=== PATIENT | female | born 1970 | race Caucasian/White ===

== ENCOUNTER 2020-04-26 13:56 | Emergency (ER) | payer BC, OTHER ==
--- NOTE | 2020-04-26 13:58 | ERPHSYRPT ---
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 She has had known abdominal wall hernia but never this kind of pain associated with her hernia. The pain has worsened today. She has not had the appetite she normally does. She has had 2 cups of coffee today and the last Being approximately 2 hours prior to arrival here. She is had no vomiting or diarrhea. She has no chest pain she has had no fever. She has no cough or shortness of breath. Timing/Duration: yesterday Activities at Onset: other (Seen and moving a patient) Quality: aching, cramping Abdominal Pain Onset Location: periumbilical Pain Radiation: no radiation Severity of Pain-Max: moderate Severity of Pain-Current: moderate Associated Symptoms: loss of appetite Previous symptoms: no prior history Allergies/Adverse Reactions: codeine Allergy (Verified 04/26/20 14:11) Penicillins Allergy (Verified 04/26/20 14:11) Home Medications: Duloxetine HCl 60 mg PO DAILY 04/26/20 [History] Gabapentin 300 mg PO TID 04/26/20 [History] Ibuprofen 800 mg PO UD PRN 04/26/20 [History] Loratadine 10 mg PO DAILY 04/26/20 [History] Prednisone 10 mg [Deltasone 10 mg] 10 mg PO UD PRN 04/26/20 [History] Tizanidine HCl 4 mg PO UD PRN 04/26/20 [History] Trazodone HCl 100 mg PO DAILY 04/26/20 [History] Travel Risk - International Travel Have you traveled outside of the country in past 3 weeks: No - Coronavirus Screening Are you exhibiting any of the following symptoms?: No Close contact with a COVID-19 positive Pt in past 14-21 Days: No - Review of Systems Constitutional: No Symptoms Eyes: No Symptoms Ears, Nose, & Throat: No Symptoms Respiratory: No Symptoms Cardiac: No Symptoms Abdominal/Gastrointestinal: Abdominal Pain (In the area of the hernia) Genitourinary Symptoms: No Symptoms Musculoskeletal: No Symptoms Skin: No Symptoms Neurological: No Symptoms Psychological: No Symptoms Endocrine: No Symptoms Hematologic/Lymphatic: No Symptoms Immunological/Allergic: No Symptoms All Other Systems: Reviewed and Negative - Past Medical History Neurological History: No Pertinent History ENT History: No Pertinent History Cardiac History: No Pertinent History Respiratory History: No Pertinent History Endocrine Medical History: No Pertinent History Musculoskeletal History: No Pertinent History GI Medical History: No Pertinent History History: No Pertinent History Psycho-Social History: No Pertinent History Female Reproductive Disorders: No Pertinent History - Past Surgical History Neuro Surgical History: No Pertinent History Cardiac: No Pertinent History Respiratory: No Pertinent History Gastrointestinal: No Pertinent History Genitourinary: No Pertinent History Musculoskeletal: No Pertinent History Female Surgical History: No Pertinent History - Nursing Vital Signs Nursing Vital Signs: Initial Vital Signs Temperature 96.6 F 04/26/20 14:03 Pulse Rate 100 H 04/26/20 14:03 Blood Pressure 108/74 04/26/20 14:03 O2 Sat by Pulse Oximetry 100 04/26/20 14:03 Pain Scale Pain Intensity 2 - Physical Exam General Appearance: mild distress, alert, anxiety Eye Exam: PERRL/EOMI, eyes nml inspection Ears, Nose, Throat Exam: normal ENT inspection, moist mucous membranes Neck Exam: normal inspection, non-tender, supple, full range of motion Respiratory Exam: normal breath sounds, lungs clear, airway intact, No chest tenderness, No respiratory distress Cardiovascular Exam: regular rate/rhythm, normal heart sounds, normal peripheral pulses Gastrointestinal/Abdomen Exam: soft, normal bowel sounds, tenderness (In the area of incarcerated umbilical hernia), guarding, No pulsatile mass, No rebound Pelvic Exam: not done Rectal Exam: not done Back Exam: normal inspection, normal range of motion, No CVA tenderness, No vertebral tenderness Extremity Exam: normal inspection Neurologic Exam: alert, oriented x 3, cooperative, 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 as tested, normal mood/affect, nml cerebellar function, nml station & gait, sensation nml Skin Exam: normal color, warm, dry Lymphatic Exam: No adenopathy SpO2 Interpretation: normal O2 Delivery: Room Air Ordered Tests: Active Orders 24 hr Category Date Time Status IV Insertion STAT Care 04/26/20 14:24 Active ABDOMEN AND PELVIS W/0 CONTRAS [CT] Stat Exams 04/26/20 14:25 Completed AMYLASE Stat Lab 04/26/20 14:47 Completed CBC W DIFF Stat Lab 04/26/20 14:47 Received CMP Stat Lab 04/26/20 14:47 Completed CULTURE,URINE Stat Lab 04/26/20 14:49 Received LIPASE Stat Lab 04/26/20 14:47 Completed Lactic Acid Stat Lab 04/26/20 14:38 Completed UA W/RFX UR CULTURE Stat Lab 04/26/20 14:49 Completed Medication Summary Discontinued Medications Generic Name Dose Route Start Last Admin Trade Name Newtonq PRN Reason Stop Dose Admin Hydromorphone HCl 0.5 mg 04/26/20 14:24 04/26/20 14:35 Hydromorphone 1 Mg/Ml Injection IV 04/26/20 14:25 0.5 mg STAT ONE Administration Hydromorphone HCl Confirm 04/26/20 14:33 Hydromorphone 1 Mg/Ml Injection Administered 04/26/20 14:34 Dose 1 mg .ROUTE .STK-MED ONE Sodium Chloride 1,000 mls @ 999 mls/hr 04/26/20 14:24 04/26/20 14:36 Sodium Chloride 0.9% 1000 Ml IV 04/26/20 15:24 999 mls/hr .Q1H1M STA Administration Sodium Chloride Confirm 04/26/20 14:34 Sodium Chloride 0.9% 1000 Ml Administered 04/26/20 14:35 Dose 1,000 mls @ ud .ROUTE .STK-MED ONE Lorazepam 1 mg 04/26/20 14:25 04/26/20 14:35 Ativan 2 Mg/1 Ml Vial IV 04/26/20 14:26 1 mg STAT ONE Administration Lorazepam Confirm 04/26/20 14:33 Ativan 2 Mg/1 Ml Vial Administered 04/26/20 14:34 Dose 2 mg .ROUTE .STK-MED ONE Ondansetron HCl 4 mg 04/26/20 14:24 04/26/20 14:35 Zofran 4 Mg/2 Ml Vial IV 04/26/20 14:25 4 mg STAT ONE Administration Ondansetron HCl Confirm 04/26/20 14:33 Zofran 4 Mg/2 Ml Vial Administered 04/26/20 14:34 Dose 4 mg .ROUTE .STK-MED ONE Lab/Rad Data: Laboratory Result Diagrams 04/26/20 14:47 Laboratory Results 04/26/20 04/26/20 04/26/20 Range/Units 14:49 14:47 14:38 Sodium 136 L (137-145) mmol/L Potassium 3.9 (3.5-5.1) mmol/L Chloride 108 H (98-107) mmol/L Carbon Dioxide 23 (22-30) mmol/L Anion Gap 8.8 (5-15) MEQ/L BUN 12 (7-17) mg/dL Creatinine 0.85 (0.52-1.04) mg/dL Estimated GFR > 60.0 ML/MIN Glucose 110 H (74-106) mg/dL Lactic Acid 1.4 (0.4-2.0) Calcium 9.4 (8.4-10.2) mg/dL Total Bilirubin 0.50 (0.2-1.3) mg/dL AST 22 (14-36) U/L ALT 11 (0-35) U/L Alkaline Phosphatase 76 (38-126) U/L Serum Total Protein 6.4 (6.3-8.2) g/dL Albumin 3.9 (3.5-5.0) g/dL Amylase 50 (30-110) U/L Lipase 149 (23-300) U/L Urine Color JUANIS (YELLOW) Urine Appearance SLIGHTLY CLOUDY (CLEAR) Urine pH 5.0 (5-6) Ur Specific [place] 1.029 (1.005-1.025) Urine Protein >=500 (Negative) Urine Ketones TRACE (NEGATIVE) Urine Blood SMALL (0-5) Jus/ul Urine Nitrite NEGATIVE (NEGATIVE) Urine Bilirubin MODERATE (NEGATIVE) Urine Urobilinogen 2 (0-1) mg/dL Ur Leukocyte Esterase MODERATE (NEGATIVE) Urine WBC (Auto) 51-100 (0-5) /HPF Urine RBC (Auto) 26-50 (0-2) /HPF U Hyaline Cast (Auto) 3-5 (0-2) /LPF U Epithel Cells (Auto) RARE (FEW) /HPF Urine Bacteria (Auto) MANY (NEGATIVE) /HPF Urine Mucus (Auto) MANY (NEGATIVE) /HPF Urine Culture Reflexed YES (NO) Urine Glucose NEGATIVE (NEGATIVE) mg/dL - Progress Progress: improved, pain not gone completely, re-examined Progress Note: 04/26/20 14:58 Procedure note: This patient had an incarcerated umbilical hernia requiring reduction. After 1 mg of intravenous Ativan and a half a milligram of intravenous Dilaudid as well as Zofran 4 mg intravenously, with even pressure the incarcerated umbilical hernia was reduced. Patient tolerated the procedure well there were no complications. 04/26/20 15:37 CAT scan of the abdomen and pelvis without contrast reveals an umbilical hernia that is small with herniated omental fat that is mildly indurated and inflamed. There is fecal stasis present. Counseled pt/family regarding: lab results, diagnosis, need for follow-up, rad results - Departure Departure Disposition: Home Clinical Impression: Umbilical hernia, incarcerated, Umbilical hernia with obstruction Condition: Stable Critical Care Time: No Referrals: CARMEN LR [Primary Care Provider] - Additional Instructions: Clear liquid diet. No lifting more than 10 pounds until you have your umbilical hernia evaluated by a general surgeon. Keep your appointment with the general surgeon. Wear your abdominal binder at all times. Forms: Work/School Release Form
[2020-04-26] MEDS ORDERED: Hydromorphone 1 mg/ml Injection IV ONE ×2 (14:24→15:55)
[2020-04-26] MEDS ORDERED: Sodium Chloride 0.9% 1000 ML 1,000 ML IV STA (14:24)
[2020-04-26] MEDS ORDERED: Zofran 4 MG/2 ML VIAL IV ONE (14:24)
[2020-04-26] MEDS ORDERED: Ativan 2 MG/1 ML VIAL IV ONE (14:25)
[2020-04-26] MEDS ORDERED: Zofran 4 MG/2 ML VIAL ONE (14:33)
[2020-04-26] MEDS ORDERED: Hydromorphone 1 mg/ml Injection ONE ×2 (14:33→15:59)
[2020-04-26] MEDS ORDERED: Ativan 2 MG/1 ML VIAL ONE (14:33)
[2020-04-26] MEDS ORDERED: Sodium Chloride 0.9% 1000 ML 1,000 ML ONE (14:34)
[2020-04-26 15:07] LABS: ALBUMIN 3.9 g/dL (3.5-5.0); ALKALINE PHOSPHATASE 76 U/L (38-126); AMYLASE 50 U/L (30-110); ANION GAP 8.8 MEQ/L (5-15); BLOOD UREA NITROGEN 12 mg/dL (7-17); CHLORIDE 108 mmol/L (98-107); Calcium 9.4 mg/dL (8.4-10.2); Carbon Dioxide 23 mmol/L (22-30); Creatinine 1 0.85 mg/dL (0.52-1.04); EST GLOMERULAR FILTRATION RATE > 60.0 ML/MIN; Glucose 110 mg/dL (74-106); LIPASE 149 U/L (23-300); Potassium 3.9 mmol/L (3.5-5.1); SGOT/AST 22 U/L (14-36); SGPT/ALT 11 U/L (0-35); SODIUM 136 mmol/L (137-145); Total Protein 6.4 g/dL (6.3-8.2)
[2020-04-26 15:19] LABS: Appearance SLIGHTLY CLOUDY (CLEAR); Bacteria MANY /HPF (NEGATIVE); Bilirubin MODERATE (NEGATIVE); Blood SMALL Ery/ul (0-5); Epithelial Cells RARE /HPF (FEW); Glucose NEGATIVE (NEGATIVE); Ketones TRACE (NEGATIVE); Leukocyte Esterase MODERATE (NEGATIVE); Mucus MANY /HPF (NEGATIVE); Nitrite NEGATIVE (NEGATIVE); Protein,Urine Dip >=500 (Negative); RBC 26-50 /HPF (0-2); Specific Gravity 1.029 (1.005-1.025); Urobilinogen 2 mg/dL (0-1); WBC 51-100 /HPF (0-5)
--- NOTE | 2020-04-26 15:28 | XRAY ---
Indication: Abdomen pain and nausea following lifting injury. Multiple contiguous images obtained through the abdomen and pelvis without contrast as ordered. Comparison: None Lung bases demonstrates bibasilar dependent atelectasis and tiny calcified granulomas. Heart is not enlarged. Noncontrasted stomach and bowel loops appear nonobstructed. Normal appendix. There is mild diffuse scattered colonic fecal debris throughout. No free fluid/air. Remaining liver, gallbladder, pancreas, spleen, adrenal glands, kidneys, ureters, uterus, and bladder appear unremarkable for noncontrast exam. Minimal aortic calcifications without AAA. Osseous structures intact with moderate L4-L5 degenerative disc disease, mild double curvature thoracolumbar scoliosis, and advanced right hip degenerative arthropathy. Small umbilical hernia with herniated omental fat appearing mildly indurated/inflamed. Impression: 1. Small umbilical hernia with herniated omental fat appearing mildly indurated/inflamed. 2. Incidental mild diffuse fecal stasis and old granulomatous disease. 3. Moderate L4-L5 degenerative disc disease, double curvature scoliosis, and advanced right hip degenerative arthropathy.
[2020-04-26 15:35] VITALS: BP 120/80; O2SAT 98
[2020-04-26 15:44] LABS: Absolute Neutrophil Ct (ANC) 4.84 (1.4-6.9); BASOPHIL % 0.1 % (0.0-0.4); Basophil (Absolute #) 0.01 (0-0.4); Eosinophil % 1.7 % (0.00-5.0); Eosinophil (Absolute #) 0.13 (0-0.5); Hematocrit 41.3 % (35-47); Hemoglobin 13.8 gm/dl (12.0-16.0); Lymphocyte (Absolute #) 1.92 (1.0-4.6); Lymphocytes % 25.4 % (24.0-44.0); Mean Cell Volume 99.5 fl (78-100); Mean Corpuscular Hemoglobin 33.3 pg (26-32); Mean Corpuscular Hgb Concent. 33.4 g/dl (32-36); Mean Platelet Volume 10.9 fl (7.5-11.0); Monocyte (Absolute #) 0.67 (0.0-1.3); Monocytes % 8.9 % (0.0-12.0); Neutrophil % 63.9 % (36.0-66.0); Platelet Count 228 K/mm3 (150-450); Red Blood Count 4.15 M/mm3 (4.1-5.4); Red Cell Distribution Width 12.6 % (11.5-14.0); White Blood Count 7.6 K/mm3 (4.0-10.5)
[2020-04-26 16:02] VITALS: PULSE 60
== END 2020-04-26 16:21 | disposition home or self-care (01) ==
LOC: ED 13:56
DX: K42.0 Umbilical hernia with obstruction, without gangrene (principal)
CPT/HCPCS: 36000; 36415; 49999; 74176; 80053; 81001; 82150; 83605; 83690; 85025; 87077; 87086; 87186; 96360; 96374; 96375; 96376; 99284; J1170; J2060; J2405; L0625

== ENCOUNTER 2021-12-16 19:41 | Emergency (ER) | payer OTHER ==
[2021-12-16] MEDS ORDERED: Zofran 4 MG/2 ML VIAL IV ONE (20:25)
[2021-12-16] MEDS ORDERED: Zofran 4 MG/2 ML VIAL ONE (20:49)
[2021-12-16 20:52] LABS: Basophil (Absolute #) 0.03 x10^3/uL (0-0.4); Eosinophil % 2.7 % (0.00-5.0); Eosinophil (Absolute #) 0.25 x10^3/uL (0-0.5); Hemoglobin 7.3 g/dL (12.0-16.0); Lymphocyte (Absolute #) 2.12 x10^3/uL (1.0-4.6); Lymphocytes % 22.6 % (24.0-44.0); Mean Cell Volume 86.6 fL (78-100); Mean Corpuscular Hemoglobin 26.4 pg (26-32); Mean Corpuscular Hgb Concent. 30.4 g/dL (32-36); Mean Platelet Volume 10.6 fL (7.5-11.0); Monocytes % 6.4 % (0.0-12.0); Neutrophil % 66.9 % (36.0-66.0); Platelet Count 430 x10^3/uL (150-450); Red Blood Count 2.77 x10^6/uL (4.1-5.4); Red Cell Distribution Width 15.9 % (11.5-14.0); White Blood Count 9.4 x10^3/uL (4.0-10.5)
[2021-12-16 21:02] LABS: Bacteria RARE /HPF (NEGATIVE); Epithelial Cells RARE /HPF (FEW); Mucus SLIGHT /HPF (NEGATIVE)
[2021-12-16 21:02] LABS: ALBUMIN 3.4 g/dL (3.5-5.0); BILIRUBIN,TOTAL 0.2 mg/dL (0.2-1.3); Calcium 8.8 mg/dL (8.4-10.2); Creatinine 1 1.06 mg/dL (0.52-1.04); EST GLOMERULAR FILTRATION RATE 58.3 ML/MIN; Potassium 3.5 mmol/L (3.5-5.1); Total Protein 6.3 g/dL (6.3-8.2)
[2021-12-16 21:03] LABS: Appearance CLEAR (CLEAR); Bilirubin NEGATIVE (NEGATIVE); Dipstick done @ ? MAIN LAB; Glucose NEGATIVE (NEGATIVE); Ketones NEGATIVE (NEGATIVE); Nitrite NEGATIVE (NEGATIVE); Protein,Urine Dip 100 (Negative); RBC SMALL Ery/ul (0-5); Specific Gravity >=1.030 (1.005-1.025); Urobilinogen 0.2 mg/dL (0-1)
[2021-12-16 21:04] LABS: Urine Cultured Indicated? YES
[2021-12-16 21:28] LABS: INFLUENZA A NEGATIVE (NEGATIVE); INFLUENZA B NEGATIVE (NEGATIVE); RESPIRATORY SYNCTIAL VIRUS NEGATIVE (Negative); SARS-CoV-2 Xpert Express NEGATIVE (NEGATIVE)
--- NOTE | 2021-12-16 22:03 | ERPHSYRPT ---
- History of Present Illness Time Seen by Provider: 12/16/21 19:44 Source: patient Exam Limitations: no limitations Patient Subjective Stated Complaint: pt states " I had my R hip replaced on Saturday 12/09 at [facility], they told me I had an infection in my blood and sent me home with antibiotics. I haven't been feeling well since about friday."" Triage Nursing Assessment: Pt ambulated to room with her crutches, pt alert and oriented x3, pt c/o fever, body aches, and generally "not feeling well since friday." Pt had R hip replacement at [facility] on 12/09/2021. Pt was told she had an infection in her blood and was sent home with Keflex antibiotics 4x day. pt took motrin 1 hr prior to arrival, pt is afebrile at this time, pt c/o R hip pain and headache. Physician History: 51 years old female status post right hip revision at [place] postop day 7 was sent home on Keflex presented in the ER with 5-day history of not feeling well with off-and-on low-grade fever, body aches, headache without cough or shortness of breath. Patient reports earlier she had a fever of 100.0 and took ibuprofen and currently afebrile. Denies any swelling around incision area/leg swelling. Denies abdominal pain nausea vomiting or diarrhea. Denies any known sick contact. 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 Associated Symptoms: headache, muscle aches, sore throat, weakness, No abdominal pain, No chest pain, No cough, No diaphoresis, No nausea/vomiting, No rhinor magno, No shortness of breath Allergies/Adverse Reactions: codeine Allergy (Verified 12/16/21 20:07) Penicillins Allergy (Verified 12/16/21 20:07) Home Medications: Duloxetine HCl 60 mg PO DAILY 04/26/20 [History] Gabapentin 300 mg PO TID 04/26/20 [History] Ibuprofen 800 mg PO UD PRN 04/26/20 [History] Loratadine 10 mg PO DAILY 04/26/20 [History] Tizanidine HCl 4 mg PO UD PRN 04/26/20 [History] Trazodone HCl 100 mg PO DAILY 11/25/20 [History] Cephalexin Mh 500 mg [Keflex 500 mg] 500 mg PO 12/16/21 [History] Hx Tetanus, Diphtheria Vaccination/Date Given: Yes Hx Influenza Vaccination/Date Given: Yes Hx Pneumococcal Vaccination/Date Given: No Immunizations Up to Date: Yes Travel Risk - International Travel Have you traveled outside of the country in past 3 weeks: No - Coronavirus Screening Are you exhibiting any of the following symptoms?: Yes Symptoms: Fever Close contact with a COVID-19 positive Pt in past 14-21 Days: No - Vaccine Status Have you recieved a Covid-19 vaccination: Yes Freezer Unloader: Unknown - Vaccination Dates Dates if Unknown: 2020 - Review of Systems Constitutional: Fever, Chills, Fatigue, Weakness Eyes: No Symptoms Ears, Nose, & Throat: No Symptoms Respiratory: No Symptoms Cardiac: No Symptoms Abdominal/Gastrointestinal: No Symptoms Genitourinary Symptoms: No Symptoms Musculoskeletal: Joint Pain Skin: No Symptoms Neurological: No Symptoms Psychological: No Symptoms Endocrine: No Symptoms Hematologic/Lymphatic: No Symptoms Immunological/Allergic: No Symptoms - Past Medical History Pertinent Past Medical History: Yes Neurological History: No Pertinent History ENT History: No Pertinent History Cardiac History: No Pertinent History Respiratory History: No Pertinent History Endocrine Medical History: No Pertinent History Musculoskeletal History: Arthritis, Osteoporosis, Rheumatoid Arthritis GI Medical History: No Pertinent History History: No Pertinent History Psycho-Social History: No Pertinent History, Depression Female Reproductive Disorders: No Pertinent History - Past Surgical History Past Surgical History: No Neuro Surgical History: No Pertinent History Cardiac: No Pertinent History Respiratory: No Pertinent History Gastrointestinal: No Pertinent History Genitourinary: No Pertinent History Musculoskeletal: Joint Replacement Female Surgical History: No Pertinent History Other Surgical History: R hip replacement x 3 - Social History Smoking Status: Current every day smoker Exposure to second hand smoke: No Drug Use: none Patient Lives Alone: No - Nursing Vital Signs Nursing Vital Signs: Initial Vital Signs Temperature 98.6 F 12/16/21 20:11 Pulse Rate 85 12/16/21 20:11 Respiratory Rate 18 12/16/21 20:11 Blood Pressure 137/67 12/16/21 20:11 O2 Sat by Pulse Oximetry 98 12/16/21 20:11 Pain Scale Pain Intensity 7 - Physical Exam General Appearance: no apparent distress, alert Eye Exam: PERRL/EOMI ENT Exam: normal ENT inspection Neck Exam: normal inspection, supple, full range of motion Respiratory Exam: normal breath sounds, lungs clear Cardiovascular/Chest Exam: normal heart sounds, regular rate/rhythm Gastrointestinal/Abdominal Exam: soft, non tender, no distention, no guarding Extremity Exam: normal inspection, swelling (Right hip bandage well applied with no erythema around. Minimal tenderness/appropriate tenderness around.) Neurologic Exam: alert, oriented x 3, cooperative Skin Exam: normal color SpO2 Interpretation: normal SpO2: 99 O2 Delivery: Room Air Ordered Tests: Active Orders 24 hr Category Date Time Status IV Insertion STAT Care 12/16/21 20:24 Active CHEST 1 VIEW (PORTABLE) Stat Exams 12/16/21 20:25 Taken BLOOD CULTURE Stat Lab 12/16/21 20:45 Received CBC W DIFF Stat Lab 12/16/21 20:45 Completed CMP Stat Lab 12/16/21 20:45 Completed CULTURE,URINE Stat Lab 12/16/21 20:48 Received Lactic Acid Stat Lab 12/16/21 20:42 Completed PROCALCITONIN Stat Lab 12/16/21 20:48 Completed UA W/RFX CULTURE Stat Lab 12/16/21 20:48 Completed Medication Summary Discontinued Medications Generic Name Dose Route Start Last Admin Trade Name Freq PRN Reason Stop Dose Admin Doxycycline Hyclate 100 mg 12/16/21 22:27 Doxycycline Hyclate 100 Mg Tablet PO 12/16/21 22:28 STAT ONE Ondansetron HCl 4 mg 12/16/21 20:25 12/16/21 20:51 Ondansetron Hcl 4 Mg/2 Ml Vial IV 12/16/21 20:26 4 mg STAT ONE Administration Ondansetron HCl Confirm 12/16/21 20:49 Ondansetron Hcl 4 Mg/2 Ml Vial Administered 12/16/21 20:50 Dose 4 mg .ROUTE .STK-MED ONE Lab/Rad Data: Laboratory Result Diagrams 12/16/21 20:45 12/16/21 20:45 Laboratory Results 12/16/21 12/16/21 12/16/21 Range/Units 20:48 20:48 20:48 WBC (4.0-10.5) x10^3/uL RBC (4.1-5.4) x10^6/uL Hgb (12.0-16.0) g/dL Hct (35-47) % MCV (78-100) fL MCH (26-32) pg MCHC (32-36) g/dL RDW (11.5-14.0) % Plt Count (150-450) x10^3/uL MPV (7.5-11.0) fL Gran % (36.0-66.0) % Immature Gran % (Auto) (0.00-0.4) % Nucleat RBC Rel Count (0.00-0.1) % Eos # (Auto) (0-0.5) x10^3/uL Immature Gran # (Auto) (0.00-0.03) x10^3u/L Absolute Lymphs (auto) (1.0-4.6) x10^3/uL Absolute Monos (auto) (0.0-1.3) x10^3/uL Absolute Nucleated RBC (0.00-0.01) x10^3u/L Lymphocytes % (24.0-44.0) % Monocytes % (0.0-12.0) % Eosinophils % (0.00-5.0) % Basophils % (0.0-0.4) % Absolute Granulocytes (1.4-6.9) x10^3/uL Basophils # (0-0.4) x10^3/uL Sodium (137-145) mmol/L Potassium (3.5-5.1) mmol/L Chloride (98-107) mmol/L Carbon Dioxide (22-30) mmol/L Anion Gap (5-15) MEQ/L BUN (7-17) mg/dL Creatinine (0.52-1.04) mg/dL Estimated GFR ML/MIN Glucose (74-106) mg/dL Lactic Acid (0.4-2.0) Calcium (8.4-10.2) mg/dL Total Bilirubin (0.2-1.3) mg/dL AST (14-36) U/L ALT (0-35) U/L Alkaline Phosphatase (38-126) U/L Serum Total Protein (6.3-8.2) g/dL Albumin (3.5-5.0) g/dL Procalcitonin 0.063 (0.030-0.080) ng/mL Urinalys Dipstick Clnc MAIN LAB Urine Color YELLOW (YELLOW) Urine Appearance CLEAR (CLEAR) Urine pH 6.0 (5-6) Ur Specific [place] >=1.030 (1.005-1.025) POC Urine Protein Conf 100 (Negative) Urine Ketones NEGATIVE (NEGATIVE) Urine Nitrite NEGATIVE (NEGATIVE) Urine Bilirubin NEGATIVE (NEGATIVE) Urine Urobilinogen 0.2 (0-1) mg/dL Urine Leukocytes NEGATIVE (NEGATIVE) Urine WBC (Auto) 6-10 (0-5) /HPF Urine RBC (Auto) 3-5 (0-2) /HPF U Epithel Cells (Auto) RARE (FEW) /HPF Urine Bacteria (Auto) RARE (NEGATIVE) /HPF Urine RBC SMALL (0-5) Jus/ul Urine Mucus (Auto) SLIGHT (NEGATIVE) /HPF Ur Culture Indicated? YES Urine Glucose NEGATIVE (NEGATIVE) mg/dL Influenza Type A Ag NEGATIVE (NEGATIVE) Influenza Type B Ag NEGATIVE (NEGATIVE) RSV (PCR) NEGATIVE (Negative) SARS-CoV-2 (PCR) NEGATIVE (NEGATIVE) 12/16/21 12/16/21 12/16/21 Range/Units 20:45 20:45 20:42 WBC 9.4 (4.0-10.5) x10^3/uL RBC 2.77 L (4.1-5.4) x10^6/uL Hgb 7.3 L (12.0-16.0) g/dL Hct 24.0 L (35-47) % MCV 86.6 (78-100) fL MCH 26.4 (26-32) pg MCHC 30.4 L (32-36) g/dL RDW 15.9 H (11.5-14.0) % Plt Count 430 (150-450) x10^3/uL MPV 10.6 (7.5-11.0) fL Gran % 66.9 H (36.0-66.0) % Immature Gran % (Auto) 1.1 H (0.00-0.4) % Nucleat RBC Rel Count 0.0 (0.00-0.1) % Eos # (Auto) 0.25 (0-0.5) x10^3/uL Immature Gran # (Auto) 0.10 H (0.00-0.03) x10^3u/L Absolute Lymphs (auto) 2.12 (1.0-4.6) x10^3/uL Absolute Monos (auto) 0.60 (0.0-1.3) x10^3/uL Absolute Nucleated RBC 0.00 (0.00-0.01) x10^3u/L Lymphocytes % 22.6 L (24.0-44.0) % Monocytes % 6.4 (0.0-12.0) % Eosinophils % 2.7 (0.00-5.0) % Basophils % 0.3 (0.0-0.4) % Absolute Granulocytes 6.30 (1.4-6.9) x10^3/uL Basophils # 0.03 (0-0.4) x10^3/uL Sodium 139 (137-145) mmol/L Potassium 3.5 (3.5-5.1) mmol/L Chloride 109 H (98-107) mmol/L Carbon Dioxide 24 (22-30) mmol/L Anion Gap 10.0 (5-15) MEQ/L BUN 14 (7-17) mg/dL Creatinine 1.06 H (0.52-1.04) mg/dL Estimated GFR 58.3 ML/MIN Glucose 104 (74-106) mg/dL Lactic Acid 1.1 (0.4-2.0) Calcium 8.8 (8.4-10.2) mg/dL Total Bilirubin 0.20 (0.2-1.3) mg/dL AST 20 (14-36) U/L ALT 15 (0-35) U/L Alkaline Phosphatase 111 (38-126) U/L Serum Total Protein 6.3 (6.3-8.2) g/dL Albumin 3.4 L (3.5-5.0) g/dL Procalcitonin (0.030-0.080) ng/mL Urinalys Dipstick Clnc Urine Color (YELLOW) Urine Appearance (CLEAR) Urine pH (5-6) Ur Specific [place] (1.005-1.025) POC Urine Protein Conf (Negative) Urine Ketones (NEGATIVE) Urine Nitrite (NEGATIVE) Urine Bilirubin (NEGATIVE) Urine Urobilinogen (0-1) mg/dL Urine Leukocytes (NEGATIVE) Urine WBC (Auto) (0-5) /HPF Urine RBC (Auto) (0-2) /HPF U Epithel Cells (Auto) (FEW) /HPF Urine Bacteria (Auto) (NEGATIVE) /HPF Urine RBC (0-5) Jus/ul Urine Mucus (Auto) (NEGATIVE) /HPF Ur Culture Indicated? Urine Glucose (NEGATIVE) mg/dL Influenza Type A Ag (NEGATIVE) Influenza Type B Ag (NEGATIVE) RSV (PCR) (Negative) SARS-CoV-2 (PCR) (NEGATIVE) - Progress Progress: unchanged Progress Note: 12/16/21 22:29 51 years old is evaluated for off-and-on fever for the last few days and recent postop hip revision surgery. She is afebrile while in here. Stable vitals. Work-up showed normal white count, hemoglobin of 7.3 but her discharge from [place] showed hemoglobin of 6.8 which I believe she has a chronic anemia. Chest x-ray showed questionable airspace disease on the right side/bronchitis, she is started on doxycycline. She has grossly unremarkable chemistries and no definitive UTI. Recommended outpatient follow-up with primary care and also calling her primary orthopedic surgeon in the morning for further evaluation. Part of her symptoms could be viral etiology in nature as well but has negative COVID-19. Discussed signs symptoms of worsening needing return to ER which she seems understanding. Counseled pt/family regarding: lab results, diagnosis, need for follow-up, rad results - Departure Departure Disposition: Home Clinical Impression: Bronchitis, Generalized body aches, Fever Condition: Stable Critical Care Time: No Referrals: CARMEN LR NP [Primary Care Provider] - Follow up/PCP as directed (1-2 days for re evaluation ) Instructions: Fever, Adult (DC) Additional Instructions: Call your primary orthopedic surgeon in the morning. Follow-up with primary care for reevaluation. Return to ER for persistent fever, worsening cough, body aches etc. Take Tylenol/ibuprofen as needed. Prescriptions: Doxycycline Hyclate 100 mg [Vibramycin 100 MG] 100 mg PO BID #14 tab
[2021-12-16 22:06] VITALS: BP 117/61; PULSE 79
[2021-12-16] MEDS ORDERED: Vibramycin 100 MG PO ONE (22:27)
[2021-12-16] MEDS ORDERED: Vibramycin 100 MG ONE (22:33)
[2021-12-16 22:35] VITALS: O2SAT 99
--- NOTE | 2021-12-17 08:48 | XRAY ---
Indication: Fever and cough. Comparison: None Portable chest demonstrates normal heart and lungs with incidental tiny calcified granulomas. Bony thorax intact with mild osteopenia and old right 6-8 rib fractures.
== END 2021-12-16 22:47 | disposition home or self-care (01) ==
LOC: ED 19:41
DX: J40 Bronchitis, not specified as acute or chronic (principal); M79.10 Myalgia, unspecified site; R50.9 Fever, unspecified; R51.9 Headache, unspecified; Z72.0 Tobacco use; Z79.899 Other long term (current) drug therapy
CPT/HCPCS: 0241U; 36000; 36415; 71045; 80053; 81015; 83605; 84145; 85025; 87040; 87086; 96374; 99284; J2405; A9270-GY